=== PATIENT | male | born 1955 | race Caucasian/White ===

== ENCOUNTER 2022-07-05 05:20 | Day surgery (SDC) | payer MEDICARE, OTHER ==
[2022-06-28 15:00] LABS: CLARITY,URINE CLEAR (Clear); COLOR,URINE YELLOW (Yellow); GLUCOSE, URINE NEGATIVE (Neg); KETONES,URINE NEGATIVE (Neg); LEUKOCYTE ESTERASE ,URINE NEGATIVE (Neg); NITRITES, URINE NEGATIVE (Neg); OCCULT BLOOD,URINE NEGATIVE (Neg); PROTEIN,URINE NEGATIVE (Neg); UA COLLECTION TYPE CLN CATCH MIDSTREAM; UROBILINOGEN,URINE 0.2 E.U/dL (0.2-1.0)
[2022-06-28 15:04] LABS: BASOPHILS % (AUTO) 0.8 % (0-1); EOSINOPHILS # (AUTO) 0.1 X10'3 (0-0.9); EOSINOPHILS % (AUTO) 1.9 % (0-6); LYMPHOCYTES # (AUTO) 1.9 X10'3 (1.1-4.8); MEAN CORPUSCULAR HEMOGLOBIN 30.4 PG (27.0-31.0); MEAN CORPUSCULAR HGB CONC 33.7 g/dL (33.0-36.5); MEAN CORPUSCULAR VOLUME 90.1 FL (78-98); MEAN PLATELET VOLUME 7.4 FL (7.4-10.4); MONOCYTES # (AUTO) 0.4 X10'3 (0-0.9); MONOCYTES % (AUTO) 7.3 % (2-12); NEUTROPHILS # (AUTO) 2.9 X10'3 (1.8-7.7); PRE OP HEMATOCRIT 47.2 % (42.0-52.0); PRE OP HEMOGLOBIN 15.9 g/dL (14.0-17.9); PRE OP PLATELET COUNT 220 X10'3 (140-440); RED BLOOD COUNT 5.24 X10'6 (4.70-6.10); RED CELL DISTRIBUTION WIDTH 13.2 % (11.5-14.5)
[2022-06-28 15:08] LABS: ALBUMIN 3.6 G/DL (3.4-5.0); ALBUMIN/GLOBULIN RATIO 0.9 (1.1-1.5); ALKALINE PHOSPHATASE 87 IU/L (46-116); BLOOD UREA NITROGEN 18 MG/DL (7-18); BUN/CREATININE RATIO 18.9 (10.0-20.0); CALCIUM 9.1 MG/DL (8.5-10.1); CHLORIDE 103 MMOL/L (99-107); CREATININE 0.95 MG/DL (0.60-1.10); PRE OP ALT 63 U/L (30-65); PRE OP ANION GAP 9 (8-16); PRE OP AST 26 U/L (10-37); PRE OP BILIRUB, TOTAL 0.3 MG/DL (0.0-1.0); PRE OP GLUCOSE 125 MG/DL (70-104); PRE OP SODIUM 140 MMOL/L (135-145); TOTAL CARBON DIOXIDE 28.4 MMOL/L (24-32); TOTAL PROTEIN 7.6 G/DL (6.4-8.2); eGFR 79 ML/MIN
[~2022-07-05] VITALS: Ht 172.7 cm; Wt 105.0 kg
[2022-07-05] VITALS (17 sets, daily range): BP systolic 119–159; BP diastolic 68–98
[~2022-07-05 05:20] MED LIST: NO HOME MEDS; ringers solution, lacted 1,000 ML IV SCH
[2022-07-05] MEDS ORDERED: famotidine 20mg tablet PO ONE (05:30)
[2022-07-05] MEDS ORDERED: ceFAZolin inj. 3,000 MG in normal saline 100ml IV soln 100 ML IV ONE (05:30)
[2022-07-05] MEDS ORDERED: BUPIVAcaine/PF 2.5 mg/ml (0.25%) 30ml vial ONE (06:57)
[2022-07-05] MEDS ORDERED: midazolam 1 mg/ML 2ml injection ONE (07:24)
[2022-07-05] MEDS ORDERED: fentaNYL/PF 50MCG/1 ML 2ML syringe ONE (07:24)
[2022-07-05] MEDS ORDERED: rocuronium 10mg/ml inj IV ONE (07:25)
[2022-07-05] MEDS ORDERED: propofol inj 20 ML IV ONE (07:25)
[2022-07-05] MEDS ORDERED: ondansetron/PF 4mg/2ml inj IV PRN (07:30)
[2022-07-05] MEDS ORDERED: morphine 4 MG/ML inj SYRINge IV PRN (07:30)
[2022-07-05] MEDS ORDERED: proCHLORperazine 10 MG/2 ml inj IV PRN (07:30)
[2022-07-05] MEDS ORDERED: morphine 2 MG/ML inj. syringe IV PRN (07:30)
[2022-07-05] MEDS ORDERED: meperidine/PF 25mg/ml syringe IV PRN ×3 (07:30)
[2022-07-05] MEDS ORDERED: ringers solution, lacted 1,000 ML IV SCH (07:30)
[2022-07-05] MEDS ORDERED: LIDOcaine 2% (20mg/ml) 5ml vial ONE (07:44)
[2022-07-05] MEDS ORDERED: sevoflurane 250ml liquid IH ONE (07:44)
[2022-07-05] MEDS ORDERED: dexamethasone sod phosphate 4mg/ml inj. ONE (07:58)
[2022-07-05] MEDS ORDERED: BUPIVAcaine/PF 2.5 mg/ml (0.25%) 30ml vial IJ ONE (08:32)
[2022-07-05] MEDS ORDERED: acetaminophen 1,000mg/100ml IV 100 ML IV ONE (08:44)
[2022-07-05] MEDS ORDERED: glycopyrrolate 0.2mg/ml inj ONE (08:56)
[2022-07-05] MEDS ORDERED: neostigmine methylsulfate 1 MG/ML 10ml vial ONE (08:56)
[2022-07-05] MEDS ORDERED: ondansetron/PF 4mg/2ml inj ONE (08:59)
--- NOTE | 2022-07-05 09:14 | NUR ---
Received from OR via , accompanied by Anesthesiologist DR BRAY and report given by Anesthesiolgist. VVS. MASK AT 8 LITER OXYGENATING AT 99%. LAPS SITES X 3 ON ABD. PATIENT IS RESTING AN NO SIGNS OF PAIN. IV 20G IN LEFT WRIST AND 20G IN LEFT HAND Addendum: 07/05/22 at 0945 by Yarely Romero RN Amended: Links added.
--- NOTE | 2022-07-05 11:44 | NUR ---
VSS. BOTH IV'S DC'D WITH NO ISSUES. PATIENT URINATED 200 WITH LESS THAN 150 RESIDUAL. PATIENT HAD HIS WATCH, WALLET, AND GLASSES WITH HIM WHEN I WHEELED HIM DOWN TO THE CAR. Addendum: 07/05/22 at 1221 by Yarely Romero RN Amended: Links added.
== END 2022-07-05 12:30 | disposition home or self-care (01) ==
LOC: PAS 05:20
PROVIDERS: ATTEND Surgery
DX: K40.90 Unilateral inguinal hernia, without obstruction or gangrene, not specified as recurrent (principal); E66.9 Obesity, unspecified; Z68.35 Body mass index [BMI] 35.0-35.9, adult; Z98.890 Other specified postprocedural states; Z86.16 Personal history of COVID-19; Z72.89 Other problems related to lifestyle; Z79.899 Other long term (current) drug therapy
CPT/HCPCS: 36415; 49650; 80053; 81003; 82948; 85025; 93005; C1758; C1781; J0131; J0690; J1100; J2250; J2405; J2704; J2710; J3010; J3490; J7030; J7120; Z7506; Z7508; Z7512; A4215; A4618